=== PATIENT | male | born 1975 | race Caucasian/White ===

== ENCOUNTER 2018-05-31 12:53 | Inpatient (IN) | payer MEDICARE, MEDICAID ==
[~2018-05-31] VITALS: Ht 165.1 cm; Wt 74.9 kg
[2018-05-31 16:12] LABS: AMPHET/METH SCREEN,URINE NEGATIVE (NEGATIVE); BARBITURATE SCREEN, URINE NEGATIVE (NEGATIVE); BENZODIAZEPINES SCREEN,URINE NEGATIVE (NEGATIVE); CANNABINOID SCREEN,URINE NEGATIVE (NEGATIVE); COCAINE SCREEN,URINE NEGATIVE (NEGATIVE); METHADONE SCREEN, URINE NEGATIVE (NEGATIVE); OPIATE SCREEN,URINE NEGATIVE (NEGATIVE)
[2018-05-31 16:14] LABS: PHENCYCLIDINE SCREEN,URINE NEGATIVE (NEGATIVE)
[2018-05-31 16:34] LABS: BASOPHILS % (AUTO) 0.6 % (0.0-2.0); EOSINOPHILS % (AUTO) 0.8 % (1.0-6.0); HEMATOCRIT 47.7 % (41-53); HEMOGLOBIN 16.1 g/dL (13.5-17.5); LYMPHOCYTES # (AUTO) 2.4 K/uL (1.0-4.8); LYMPHOCYTES % (AUTO) 32.6 % (22.0-44.0); MEAN CORPUSCULAR HEMOGLOBIN 29.5 pg (26.0-34.0); MEAN CORPUSCULAR HGB CONC 33.7 G/dL (31.0-37.0); MEAN CORPUSCULAR VOLUME 88 fL (80-100); MONOCYTES # (AUTO) 0.5 K/uL (0.1-1.0); NEUTROPHILS # (AUTO) 4.3 K/uL (1.8-7.7); PLATELET COUNT (AUTO) 286 K/uL (150-450); RED BLOOD CELL COUNT(AUTO) 5.44 MIL/uL (4.50-5.90); RED CELL DISTRIBUTION WIDTH 14.5 % (11.5-14.5)
[2018-05-31 16:48] LABS: ANION GAP 13 mmol/L (8-16); CARBON DIOXIDE 24 mmol/L (22-29); CHLORIDE 103 mmol/L (98-107); CREATININE 0.96 mg/dL (0.60-1.30); GLOMERULAR FILTR. RATE CALC > 60 mL/min (>60); GLUCOSE,RANDOM 91 mg/dL (70-110); POTASSIUM 3.6 mmol/L (3.5-5.1); SODIUM SERUM 140 mmol/L (136-145); UREA NITROGEN, BLOOD 14 mg/dL (7-18)
[2018-05-31 16:55] LABS: ALANINE AMINOTRANSFERASE 39 U/L (12-78); ALKALINE PHOSPHATASE 78 U/L (46-116); ASPARTATE AMINOTRANSFERASE 20 U/L (15-37); BILIRUBIN,TOTAL 0.8 mg/dL (0.1-1.0); TOTAL PROTEIN, SERUM 7.8 g/dL (6.4-8.2)
[2018-05-31] MEDS ORDERED: HALOPERIDOL 5 MG TABLET PO ONE (17:00)
[2018-05-31] MEDS ORDERED: HALOPERIDOL 5 MG TABLET PO PRN (20:00)
[2018-05-31] MEDS ORDERED: LORazepam 2 MG TABLET PO PRN (20:00)
[2018-05-31] MEDS ORDERED: ZOLPIDEM TARTRATE 10 MG TABLET PO PRN (20:00)
[2018-05-31 20:41] LABS: HEMOGLOBIN A1C 5.2 % (4.5-6.2)
[2018-05-31 20:52] LABS: CHOL/HDL RATIO 5.5 (4.2-7.3); FREE T4 (FREE THYROXINE) 1.12 ng/dL (0.76-1.46); THYROID STIMULATING HORMONE 1.03 uIU/mL (0.36-3.74)
[2018-06-01 00:07] VITALS: BP 126/82
[2018-06-01 08:28] VITALS: BP 123/70
[2018-06-01 16:07] VITALS: BP 113/64
[2018-06-01] MEDS: OLANZapine 5 MG TABLET PO SCH (17:16)
[2018-06-02 02:17] VITALS: BP 120/82
[2018-06-02 08:33] VITALS: BP 95/54
[2018-06-02] MEDS: OLANZapine 5 MG TABLET PO SCH ×2 (08:54→16:12)
[2018-06-02 16:11] VITALS: BP 109/69
[2018-06-03 02:03] VITALS: BP 113/72
[2018-06-03 08:20] VITALS: BP 107/62
[2018-06-03] MEDS: OLANZapine 7.5 MG TABLET PO SCH ×2 (08:47→16:18)
[2018-06-03] MEDS: FLUoxetine HCL 20 MG CAPSULE PO SCH (08:47)
[2018-06-03 16:12] VITALS: BP 105/61
[2018-06-03 17:12] VITALS: BP 105/65
[2018-06-04 05:52] VITALS: BP 101/63
[2018-06-04 08:10] VITALS: BP 106/73
[2018-06-04] MEDS: FLUoxetine HCL 20 MG CAPSULE PO SCH (08:47)
[2018-06-04] MEDS: OLANZapine 10 MG TABLET PO SCH ×2 (08:47→16:30)
[2018-06-04] MEDS ORDERED: ACETAMINOPHEN 325 MG TABLET PO PRN (13:45)
[2018-06-04] MEDS ORDERED: CloNIDine HCL 0.1 MG TABLET PO PRN (13:45)
[2018-06-04] MEDS ORDERED: DOCUSATE SODIUM 100 MG CAPSULE PO PRN (13:45)
[2018-06-04] MEDS ORDERED: MAG HYDROX/AL HYDROX/SIMETH ES 30 ML SUSPENSION UDCUP PO PRN (13:45)
[2018-06-04] MEDS ORDERED: NICOTINE 14 MG/24 HOUR PATCH TD PRN (13:45)
[2018-06-04] MEDS ORDERED: IBUPROFEN 400 MG TABLET PO PRN (13:45)
[2018-06-04] MEDS ORDERED: ALBUTEROL SULFATE HFA 90 MCG/PUFF 8 GM INHALER IH PRN (13:45)
[2018-06-04] MEDS ORDERED: GuaiFENesin/D-METHORPHAN [SUGAR-FREE] 200-20MG/10 ML SYRUP UDCUP PO PRN (13:45)
[2018-06-04] MEDS ORDERED: PETROLATUM,WHITE 71 GM JELLY TP PRN (13:45)
[2018-06-04] MEDS ORDERED: LOPERAMIDE HCL 2 MG CAPSULE PO PRN (13:45)
[2018-06-04] MEDS ORDERED: ONDANSETRON HCL 4 MG TABLET PO PRN (13:45)
[2018-06-04] MEDS ORDERED: MAGNESIUM HYDROXIDE SUSPENSION 30 ML UDCUP PO PRN (13:45)
[2018-06-04 16:19] VITALS: BP 110/75
[2018-06-05 06:07] VITALS: BP 119/71
[2018-06-05 08:16] VITALS: BP 109/66
[2018-06-05] MEDS: FLUoxetine HCL 20 MG CAPSULE PO SCH (08:55)
[2018-06-05] MEDS: OLANZapine 10 MG TABLET PO SCH ×2 (08:55→16:01)
[2018-06-05 16:06] VITALS: BP 123/67
[2018-06-06 00:15] VITALS: BP 129/79
[2018-06-06 08:23] VITALS: BP 109/65
[2018-06-06] MEDS: OLANZapine 10 MG TABLET PO SCH ×2 (09:11→16:16)
[2018-06-06] MEDS: FLUoxetine HCL 20 MG CAPSULE PO SCH (09:11)
[2018-06-06 16:18] VITALS: BP 117/74
[2018-06-07 06:46] VITALS: BP 117/78
[2018-06-07 08:00] VITALS: BP 108/65
[2018-06-07] MEDS: FLUoxetine HCL 20 MG CAPSULE PO SCH (08:23)
[2018-06-07] MEDS: OLANZapine 10 MG TABLET PO SCH ×2 (08:23→16:41)
[2018-06-07 16:05] VITALS: BP 140/84
[2018-06-07] MEDS: DIVALPROEX SODIUM 500 MG ER TABLET PO SCH (16:41)
[2018-06-08 06:00] VITALS: BP 103/71
[2018-06-08 08:19] VITALS: BP 106/68
[2018-06-08] MEDS: FLUoxetine HCL 20 MG CAPSULE PO SCH (08:47)
[2018-06-08] MEDS: OLANZapine 10 MG TABLET PO SCH ×2 (08:47→16:33)
[2018-06-08] MEDS: DIVALPROEX SODIUM 500 MG ER TABLET PO SCH ×2 (08:47→16:33)
[2018-06-08 16:07] VITALS: BP 121/90
[2018-06-09 00:55] VITALS: BP 102/68
[2018-06-09 08:00] VITALS: BP 114/68
[2018-06-09] MEDS: FLUoxetine HCL 20 MG CAPSULE PO SCH (08:48)
[2018-06-09] MEDS: DIVALPROEX SODIUM 500 MG ER TABLET PO SCH ×2 (08:48→16:36)
[2018-06-09] MEDS: OLANZapine 10 MG TABLET PO SCH ×2 (08:49→16:36)
[2018-06-09 16:51] VITALS: BP 117/84
[2018-06-10 06:21] VITALS: BP 104/65
[2018-06-10 08:31] VITALS: BP 107/59
[2018-06-10 08:49] LABS: BASOPHILS % (AUTO) 0.4 % (0.0-2.0); HEMATOCRIT 48.2 % (41-53); HEMOGLOBIN 16.2 g/dL (13.5-17.5); LYMPHOCYTES # (AUTO) 2.6 K/uL (1.0-4.8); LYMPHOCYTES % (AUTO) 39.6 % (22.0-44.0); MEAN CORPUSCULAR HEMOGLOBIN 29.9 pg (26.0-34.0); MEAN CORPUSCULAR HGB CONC 33.7 G/dL (31.0-37.0); MEAN CORPUSCULAR VOLUME 89 fL (80-100); MONOCYTES # (AUTO) 0.6 K/uL (0.1-1.0); MONOCYTES % (AUTO) 8.5 % (2.0-9.0); NEUTROPHILS # (AUTO) 3.2 K/uL (1.8-7.7); NEUTROPHILS % (AUTO) 49.5 % (40.0-70.0); PLATELET COUNT (AUTO) 227 K/uL (150-450); RED BLOOD CELL COUNT(AUTO) 5.44 MIL/uL (4.50-5.90)
[2018-06-10] MEDS: DIVALPROEX SODIUM 500 MG ER TABLET PO SCH ×2 (09:00→16:32)
[2018-06-10] MEDS: OLANZapine 10 MG TABLET PO SCH ×2 (09:00→16:32)
[2018-06-10] MEDS: FLUoxetine HCL 20 MG CAPSULE PO SCH (09:00)
[2018-06-10 09:14] LABS: ALANINE AMINOTRANSFERASE 34 U/L (12-78); ALBUMIN 3.3 g/dL (3.4-5.0); ALKALINE PHOSPHATASE 66 U/L (46-116); ANION GAP 6 mmol/L (8-16); ASPARTATE AMINOTRANSFERASE 17 U/L (15-37); BILIRUBIN,TOTAL 0.3 mg/dL (0.1-1.0); CALCIUM, TOTAL 8.8 mg/dL (8.8-10.5); CARBON DIOXIDE 31 mmol/L (22-29); CHLORIDE 105 mmol/L (98-107); CREATININE 1.05 mg/dL (0.60-1.30); GLOMERULAR FILTR. RATE CALC > 60 mL/min (>60); GLUCOSE,RANDOM 75 mg/dL (70-110); POTASSIUM 4.2 mmol/L (3.5-5.1); SODIUM SERUM 142 mmol/L (136-145); TOTAL PROTEIN, SERUM 6.8 g/dL (6.4-8.2); UREA NITROGEN, BLOOD 21 mg/dL (7-18); VALPROIC ACID 56 mcg/mL (50-100)
[2018-06-10 16:40] VITALS: BP 108/81
[2018-06-11 07:20] VITALS: BP 102/68
[2018-06-11] MEDS ORDERED: DIVA250T4 PO (07:55)
[2018-06-11] MEDS ORDERED: MIRT30 PO (07:55)
[2018-06-11] MEDS ORDERED: ARIP30TA PO (07:55)
[2018-06-11] MEDS ORDERED: FLUO10CA21 PO (08:11)
[2018-06-11] MEDS ORDERED: OLAN10TA3 PO (08:11)
[2018-06-11 08:33] VITALS: BP 118/74
[2018-06-11] MEDS: FLUoxetine HCL 20 MG CAPSULE PO SCH (08:53)
[2018-06-11] MEDS: OLANZapine 10 MG TABLET PO SCH (08:53)
[2018-06-11] MEDS: DIVALPROEX SODIUM 500 MG ER TABLET PO SCH (08:53)
== END 2018-06-11 13:30 | disposition home or self-care (01) | DRG 885 ==
LOC: EMS 12:55 → B2X 20:30
PROVIDERS: ADMIT Psychiatry & Neurology Psychiatry; ATTEND Psychiatry & Neurology Psychiatry
DX: F20.0 Paranoid schizophrenia (principal); F17.210 Nicotine dependence, cigarettes, uncomplicated; E78.5 Hyperlipidemia, unspecified; F32.9 Major depressive disorder, single episode, unspecified; G47.00 Insomnia, unspecified; I10 Essential (primary) hypertension; R41.83 Borderline intellectual functioning; Z81.8 Family history of other mental and behavioral disorders; Z91.19 Patient's noncompliance with other medical treatment and regimen
CPT/HCPCS: 83036; 84439; 84443; 99285; G0480